=== PATIENT | male | born 1940 | race Caucasian/White ===

== ENCOUNTER 2023-08-09 06:52 | Day surgery (SDC) | payer MEDICARE ==
[2023-08-09] VITALS (7 sets, daily range): BP systolic 128–162; BP diastolic 70–80; PULSE 52–65; RESP 13–19; TEMP 97.7; O2SAT 93–97
[~2023-08-09] VITALS: Ht 170.2 cm; Wt 93.8 kg
[2023-08-09 07:44] LABS: BASOPHILS # (AUTO) 0.1 X10'3 (0-0.2); BASOPHILS % (AUTO) 1.3 % (0-1); EOSINOPHILS # (AUTO) 0.1 X10'3 (0-0.9); EOSINOPHILS % (AUTO) 2.7 % (0-6); HEMATOCRIT 41.6 % (42.0-52.0); HEMOGLOBIN 14.4 g/dl (14.0-17.9); LYMPHOCYTES # (AUTO) 1.2 X10'3 (1.1-4.8); LYMPHOCYTES % (AUTO) 25.9 % (21-51); MEAN CORPUSCULAR HEMOGLOBIN 33.2 PG (27.0-31.0); MEAN CORPUSCULAR HGB CONC 34.5 g/dL (33.0-36.5); MEAN CORPUSCULAR VOLUME 96.4 FL (78-98); MEAN PLATELET VOLUME 6.9 FL (7.4-10.4); MONOCYTES # (AUTO) 0.6 X10'3 (0-0.9); MONOCYTES % (AUTO) 12.7 % (2-12); NEUTROPHILS # (AUTO) 2.8 X10'3 (1.8-7.7); NEUTROPHILS % (AUTO) 57.4 % (42-75); PLATELET COUNT 232 X10'3 (140-440); RED BLOOD COUNT 4.32 X10'6 (4.70-6.10); RED CELL DISTRIBUTION WIDTH 13.9 % (11.5-14.5); WHITE BLOOD COUNT 4.8 X10'3 (4.5-11.0)
[2023-08-09 07:57] LABS: INR 1.7 INR; PROTHROMBIN TIME 17.8 SECONDS (9.0-12.0)
[2023-08-09] MEDS ORDERED: WARF-55 PO (08:05)
[2023-08-09] MEDS ORDERED: SERT50TA PO (08:05)
[2023-08-09] MEDS ORDERED: ROSU20TA73 PO (08:05)
[2023-08-09] MEDS ORDERED: PANT40TA54 PO (08:05)
[2023-08-09] MEDS ORDERED: SULF1TAB45 PO (08:05)
[2023-08-09] MEDS ORDERED: FLEC100T PO (08:05)
[2023-08-09] MEDS ORDERED: MULT-1249 PO (08:05)
[2023-08-09] MEDS ORDERED: LEVO25CA4 PO (08:05)
[2023-08-09] MEDS ORDERED: CHOL200026 PO (08:05)
[2023-08-09 08:25] LABS: ALBUMIN 3.7 G/DL (3.4-5.0); ANION GAP 10 (8-16); BLOOD UREA NITROGEN 17 MG/DL (7-18); BUN/CREATININE RATIO 12.8 (10.0-20.0); CALCIUM 9.3 MG/DL (8.5-10.1); CHLORIDE 102 MMOL/L (99-107); CREATININE 1.33 MG/DL (0.60-1.10); GLUCOSE 109 MG/DL (70-104); POTASSIUM 4.3 MMOL/L (3.5-5.1); SODIUM 138 MMOL/L (135-145); TOTAL CARBON DIOXIDE 26.4 MMOL/L (24-32); eCRCL 39 ML/MIN; eGFR 51 ML/MIN
[2023-08-09] MEDS ORDERED: LIDOcaine 1% (10mg/ml)w/preservative inj. 20ml MDV ONE (09:16)
[2023-08-09] MEDS ORDERED: normal saline 1000ml 1,000 ML IV ONE (10:10)
== END 2023-08-09 11:15 | disposition home or self-care (01) ==
LOC: SSTAY O 06:52
PROVIDERS: ATTEND Internal Medicine Cardiovascular Disease
DX: Z45.09 Encounter for adjustment and management of other cardiac device (principal); I48.0 Paroxysmal atrial fibrillation; E03.9 Hypothyroidism, unspecified; E78.5 Hyperlipidemia, unspecified; G47.33 Obstructive sleep apnea (adult) (pediatric); K21.9 Gastro-esophageal reflux disease without esophagitis; I34.0 Nonrheumatic mitral (valve) insufficiency; Z86.73 Personal history of transient ischemic attack (TIA), and cerebral infarction without residual deficits; Z79.01 Long term (current) use of anticoagulants; Z79.890 Hormone replacement therapy; Z79.899 Other long term (current) drug therapy; Z98.890 Other specified postprocedural states; Z82.49 Family history of ischemic heart disease and other diseases of the circulatory system; Z82.3 Family history of stroke
CPT/HCPCS: 33286; 36415; 80048; 85025; 85610; 93005; J3490; A6258; A6449

== ENCOUNTER 2025-03-26 09:01 | Day surgery (SDC) | payer MEDICARE ==
[~2025-03-26] VITALS: Ht 170.2 cm; Wt 92.9 kg
[~2025-03-26 09:01] MED LIST: CHOL200026 PO; FLEC100T PO; LEVO25CA5 PO; MULT-1249 PO; PANT40TA54 PO; ROSU20TA98 PO; SERT50TA PO; SULF1TAB45 PO; WARF-55 PO
[2025-03-26] MEDS ORDERED: midazolam 1 mg/ML 2ml injection ONE ×3 (09:24→12:12)
[2025-03-26] MEDS ORDERED: fentaNYL/PF 50MCG/1 ML 2ML syringe ONE ×2 (09:25→12:12)
--- NOTE | 2025-03-26 09:33 | ELECTROCARDIOGRAPH REPORT ---
[facility] Test Date: 2025-03-26 Test Time: 09:31:32 Pat Name: TRUDY FELTON Department: [facility] Patient ID: [facility]-[id number] Room: Gender: M [employer] Assembler: Riana Griggs : 1940 Requested By: MITCH CHAPMAN Order Number: [id number] Reading MD: Dr. Kenan Nichole Measurements Intervals [place] Rate: 60 P: 0 MA: 0 QRS: 98 QRSD: 111 T: 41 QT: 446 QTc: 446 Interpretive Statements Atrial flutter with predominant 4:1 AV block Probable right ventricular hypertrophy Electronically Signed On 03-28-2025 13:06:[address] Kenan Nichole Please click the below link to view image of tracing.
[2025-03-26] MEDS ORDERED: ATOR40TA72 PO (09:38)
[2025-03-26] MEDS ORDERED: AMI200T PO (09:38)
[2025-03-26] MEDS ORDERED: LOSA50TA64 PO (09:41)
[2025-03-26] MEDS ORDERED: TAMS-55 (09:41)
[2025-03-26] MEDS ORDERED: CALC-1215 PO (09:42)
[2025-03-26] MEDS ORDERED: areds (09:42)
[2025-03-26] MEDS ORDERED: MAGN250T11 PO (09:43)
[2025-03-26] MEDS ORDERED: OMEG100037 PO (09:43)
[2025-03-26] MEDS ORDERED: SIME80TA15 PO (09:44)
[2025-03-26] MEDS ORDERED: ZINC220T3 PO (09:44)
[2025-03-26] MEDS ORDERED: FOLI400T4 PO (09:45)
[2025-03-26] MEDS ORDERED: normal saline 1000ml 1,000 ML IV SCH (09:50)
[2025-03-26] MEDS ORDERED: fentaNYL/PF 50MCG/1 ML 2ML syringe IV ONE (09:50)
[2025-03-26] MEDS ORDERED: MIDAZolam 1mg/ml 10ml vial IV ONE (09:50)
[2025-03-26 10:17] LABS: ALBUMIN 3.6 G/DL (3.4-5.0); ANION GAP 10 (8-16); BLOOD UREA NITROGEN 20 MG/DL (7-18); BUN/CREATININE RATIO 17.7 (10.0-20.0); CALCIUM 8.9 MG/DL (8.5-10.1); CHLORIDE 106 MMOL/L (99-107); CREATININE 1.13 MG/DL (0.60-1.10); GLUCOSE 114 MG/DL (70-104); POTASSIUM 4.5 MMOL/L (3.5-5.1); SODIUM 144 MMOL/L (135-145); TOTAL CARBON DIOXIDE 27.8 MMOL/L (24-32); eCRCL 45 ML/MIN; eGFR 62 ML/MIN
[2025-03-26 10:19] LABS: BASOPHILS % (AUTO) 0.6 % (0-1); EOSINOPHILS # (AUTO) 0.1 X10'3 (0-0.9); EOSINOPHILS % (AUTO) 1.6 % (0-6); HEMATOCRIT 40.8 % (42.0-52.0); INR 3.1 INR; LYMPHOCYTES # (AUTO) 1.2 X10'3 (1.1-4.8); LYMPHOCYTES % (AUTO) 22.4 % (21-51); MEAN CORPUSCULAR HEMOGLOBIN 32.8 PG (27.0-31.0); MEAN CORPUSCULAR HGB CONC 34.2 g/dL (33.0-36.5); MEAN PLATELET VOLUME 6.8 FL (7.4-10.4); MONOCYTES # (AUTO) 0.6 X10'3 (0-0.9); MONOCYTES % (AUTO) 10.8 % (2-12); NEUTROPHILS # (AUTO) 3.5 X10'3 (1.8-7.7); NEUTROPHILS % (AUTO) 64.6 % (42-75); PLATELET COUNT 225 X10'3 (140-440); PROTHROMBIN TIME 28.7 SECONDS (9.0-12.0); RED BLOOD COUNT 4.25 X10'6 (4.70-6.10); RED CELL DISTRIBUTION WIDTH 13.4 % (11.5-14.5); WHITE BLOOD COUNT 5.4 X10'3 (4.5-11.0)
[2025-03-26 10:38] VITALS: BP 144/77; PULSE 61; RESP 16; TEMP 98.2; O2SAT 97
[2025-03-26 11:29] VITALS: RESP 16; O2SAT 97
[2025-03-26] MEDS ORDERED: atropine 0.1mg/ml 10ml syringe ONE (11:51)
[2025-03-26] MEDS ORDERED: amiodarone 50MG/ML inj IV ONE (11:51)
[2025-03-26 13:10] VITALS: BP 144/85; PULSE 57; RESP 10; O2SAT 95
[2025-03-26 13:25] VITALS: BP 145/82; PULSE 66; RESP 14; O2SAT 95
[2025-03-26 13:40] VITALS: BP 145/79; PULSE 59; RESP 12; O2SAT 96
--- NOTE | 2025-03-26 13:44 | ELECTROCARDIOGRAPH REPORT ---
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 Kenan Nichole Measurements Intervals [place] Rate: 63 P: 94 RI: 276 QRS: 102 QRSD: 107 T: 2 QT: 436 QTc: 447 Interpretive Statements Sinus rhythm Prolonged RI interval Right axis deviation Borderline T wave abnormalities Electronically Signed On 03-28-2025 13:10:[address] Kenan Nichole Please click the below link to view image of tracing.
--- NOTE | 2025-03-27 05:01 | CARDIOLOGY REPORT ---
DATE OF SERVICE: 03/26/2025 DICTATING PHYSICIAN: MITCH CHAPMAN DO PROCEDURE: DC cardioversion. PREPROCEDURAL DIAGNOSIS: Atrial fibrillation. POSTPROCEDURAL DIAGNOSIS: Atrial fibrillation, cardioverted to sinus rhythm. DESCRIPTION OF PROCEDURE: The patient was sedated with fentanyl and Versed. He was then given one 200 joule synchronized shock resulting in conversion to sinus rhythm. No complications. PLAN: Ongoing medical therapy. FINAL DIAGNOSIS: Atrial fibrillation, cardioverted to sinus rhythm. MITCH CHAPMAN DO TID: [id number] RECEIPT: [id number] SHU/[id number]
== END 2025-03-26 13:50 | disposition home or self-care (01) ==
LOC: SSTAY O 09:01
PROVIDERS: ATTEND Internal Medicine Cardiovascular Disease
DX: I48.0 Paroxysmal atrial fibrillation (principal); E03.9 Hypothyroidism, unspecified; I10 Essential (primary) hypertension; E78.5 Hyperlipidemia, unspecified; K21.9 Gastro-esophageal reflux disease without esophagitis; G47.33 Obstructive sleep apnea (adult) (pediatric); Z86.73 Personal history of transient ischemic attack (TIA), and cerebral infarction without residual deficits; Z98.890 Other specified postprocedural states; Z79.890 Hormone replacement therapy; Z79.01 Long term (current) use of anticoagulants; Z79.899 Other long term (current) drug therapy; Z82.3 Family history of stroke; Z82.49 Family history of ischemic heart disease and other diseases of the circulatory system
CPT/HCPCS: 36415; 80048; 83735; 85025; 85610; 92960; 93005; J2250; J3010; J7030; 99152; J0282; J0461